=== PATIENT | male | born 1945 | race Caucasian/White ===

== ENCOUNTER 2021-01-13 09:15 | Outpatient (REF) | payer MEDICARE, SELFPAY ==
--- NOTE | 2021-01-13 09:48 | MHC.AU.ANR ---
Adult Audiological Evaluation Date of Visit: 01/13/21 Reason for Appointment: Audiological evaluation due to concern for decreased hearing and tinnitus. Mr. Fiore reports that he hears well most of the time, but has some trouble hearing in background noise and at a distance. He has tinnitus bilaterally, but notes that it is worse in his left ear. 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 He notes that on one occasion, he was walking by the speakers/amps and it turned on very loud while he was in front of it. He notes that his left ear had been facing the speakers when that happened and has since noticed that his left ear is worse than the right. Does patient feel they have a hearing loss?: Yes If Yes, Which Ear?: Both Ears When Was Hearing Difficulty First Noticed?: Patient says it is hard to say, probably around age 33. Has hearing been tested previously?: No Hearing Handicap Inventory: HHIE SCORE: 8 Based on HHIE score, patient has: No perceived hearing handicap Ear History: Bothersome Tinnitus/Ringing/Noises in Ears: Both ears, worse in left History of occupational noise exposure?: Yes: Manager Product for a [employer] History: History: Yes Branch: [employer] Years in : Less than 4 years Medical History: Medical History: Measles, Tobacco Use Medical History (Other): Tonsillectomy after undiagnosed illness at age 10, Lymph node removal, vasovagal syncope Medication List: Advair inhaler PRN, Acyclovir 400 mg PRN, Atorvastatin 20 mg daily, Vitamin and mineral supplements daily Otoscopy: Right Ear: Unremarkable Left Ear: Unremarkable Tympanometry: Tympanometry performed due to: To assess integrity of the middle ear system Right Ear: Normal Middle Ear System (Type A) Left Ear: Normal Middle Ear System (Type A) Hearing Evaluation: Transducer(s) Used: Insert Earphones, Bone Conduction Method: Conventional Audiometry Stimuli Used: Pure Tones Right Ear: Description of Hearing: Normal hearing from 250-3000 Hz, sloping to a mild sensorineural hearing loss at 4000 Hz, a moderate hearing loss at 6000 Hz, and a moderately-severe hearing loss at 8000 Hz. Left Ear: Description of Hearing: Normal hearing from 250-2000 Hz, dropping to moderate sensorineural hearing loss from 9473-0035 Hz, and a moderately-severe hearing loss at 8000 Hz. Hearing in the left ear is worse than the right by 10 dBHL at 1000 Hz and 25 dBHL at 3000 and 4000 Hz. Speech Recognition Threshold (SRT): Method Used: Monitored Live Voice Stimuli Used: Spondee Words Right Ear: 5 dBHL Left Ear: 10 dBHL Word Discrimination: Method: Recorded Lists Word Lists Used: NU-6 Right Ear: 100% at 45 dBHL Left Ear: 100% at 50 dBHL QuickSIN: 3 dB SNR loss when presented at 50 dBHL binaurally, indicating normal [id number] understanding abilities. Recommendations: Audiological re-evaluation in one year. Referral to Ear, Nose, and Throat is recommended due to asymmetric hearing loss. Mr. Fiore is a borderline candidate for amplification, though he does not feel he is ready for hearing aids at this time. Diagnosis: Primary Diagnosis: H90.3 Bilateral Sensorineural Hearing Loss Secondary Diagnosis: H93.13 Tinnitus, Bilateral Services Performed: Services Performed: Comprehensive Audiological Evaluation (CPT 68628) Tympanometry (CPT 83934) Unlisted Otorhinolaryngological Service or Procedure (CPT 17704) Signature: Provider: Alicia Coy, CCC-A
== END 2021-01-13 09:16 | disposition home or self-care (01) ==
LOC: HO.SH 09:15
PROVIDERS: Visit Provider Internal Medicine
DX: H90.3 Sensorineural hearing loss, bilateral (principal)
CPT/HCPCS: 92557; 92567